=== PATIENT | male | born 1970 | race Caucasian/White ===

== ENCOUNTER 2020-02-18 09:55 | Inpatient (IN) ==
[2020-02-18 10:46] LABS: Basophils # 0.1 K/mcL (0.0-0.2); Basophils % 0.4 %; Eosinophils # 0.3 K/mcL (0.0-0.6); Eosinophils % 1.7 %; Hemoglobin 13.3 g/dL (12.9-16.9); Immature Granulocytes % 0.5 % (0-4); Lymphocytes # 1.3 K/mcL (0.6-4.6); Lymphocytes % 8.5 %; Mean Corpuscular HGB Conc 32.4 g/dL (31.6-35.5); Mean Corpuscular Hemoglobin 28.8 pg (28.0-33.3); Mean Corpuscular Volume 88.7 fL (83.0-100.0); Mean Platelet Volume 9.1 fL (9.4-12.4); Monocytes # 0.9 K/mcL (0.0-1.3); Monocytes % 5.8 %; Neutrophils # 12.7 K/mcL (1.6-8.9); Platelet Count 401 K/mcL (140-400); Red Blood Count 4.62 M/mcL (4.19-5.50); Red Cell Distribution Width 12.5 % (11.5-14.5); Segmented Neutrophils % 83.1 %; White Blood Count 15.3 K/mcL (4.3-11.1)
[2020-02-18 10:58] LABS: Acetaminophen < 10 mcg/mL (10-20); BUN/Creatinine Ratio 12 (6-26); Blood Urea Nitrogen 11 mg/dL (6-20); Calcium 9.8 mg/dL (8.6-10.3); Carbon Dioxide 25 mEq/L (23-29); Chloride 99 mEq/L (98-107); Chol/HDL Ratio 5.8 (0-4.9); Cholesterol 203 mg/dL (< 200); Ethanol < 10 mg/dL (Less than 10); Glucose 132 mg/dL (70-105); HDL Cholesterol 35 mg/dL (40-59); LDL Cholesterol,Calculated 132 mg/dL (< 100); Osmolality,Calculated 279 (280-300); Potassium 3.2 mEq/L (3.5-5.1); Salicylate < 2.5 mg/dL (15.0-30.0); Sodium 134 mEq/L (136-145); Triglycerides 178 mg/dL (< 150); eGFR For African Americans > 60 (> 60); eGFR For Non-African Americans > 60 (> 60)
[2020-02-18 11:19] LABS: Bilirubin,Urine Negative (Negative); Blood,Urine Negative (Negative); Clarity,Urine Clear (Clear); Color,Urine Light-Yellow (Yellow); Glucose,Urine (UA) Normal (Normal); Ketones,Urine Negative (Negative); Leukocyte Esterase,Urine Negative (Negative); Nitrite,Urine Negative (Negative); Protein,Urine Negative (Neg-Trace); Specific Gravity,Urine 1.011 (1.010-1.025); Urobilinogen,Urine Normal (Normal)
[2020-02-18 11:26] LABS: Amphetamine Screen,Urine Negative ng/mL (Cutoff=1000); Barbiturate Screen,Urine Negative ng/mL (Cutoff=200); Benzodiazepines Screen,Urine Negative ng/mL (Cutoff=200); Cannabinoid Screen,Urine Negative ng/mL (Cutoff = 50); Cocaine Screen,Urine Negative ng/mL (Cutoff= 300); Opiate Screen,Urine Negative ng/mL (Cutoff=300); Phencyclidine Screen,Urine Negative ng/mL (Cutoff=25)
[2020-02-18 11:41] LABS: Estimated Average Glucose 131 mg/dl
[2020-02-18] MEDS ORDERED: *HR* LORazepam 2 MG/ML VIAL IM PRN (12:19)
[2020-02-18] MEDS ORDERED: *HR* LORazepam 1 MG TABLET PO PRN (12:19)
[2020-02-18] MEDS ORDERED: haloperidoL 5 MG TABLET PO PRN (12:19)
[2020-02-18] MEDS ORDERED: MOM Conc 10 ML UD.LIQ PO PRN (12:19)
[2020-02-18] MEDS ORDERED: Mag Hydrox/Al Hydrox/Simeth 30 ML UDC PO PRN (12:19)
[2020-02-18] MEDS ORDERED: Haloperidol Lactate 5 MG/ML VIAL IM PRN (12:19)
[2020-02-18] MEDS: risperiDONE 0.25 MG TABLET PO SCH (12:59)
[2020-02-18] MEDS: Nicotine 14 MG PATCH.TD24 TD SCH (17:02)
[2020-02-18] MEDS: risperiDONE 1 MG TABLET PO SCH (20:33)
[2020-02-18] MEDS: hydrOXYzine pamoate 25 MG CAPSULE PO PRN (20:33)
[2020-02-18] MEDS: traZODone 50 MG TABLET PO PRN (20:33)
[2020-02-19] MEDS: risperiDONE 0.25 MG TABLET PO SCH (08:17)
[2020-02-19] MEDS: Nicotine 14 MG PATCH.TD24 TD SCH (08:18)
[2020-02-19] MEDS ORDERED: Potassium Chloride Elixir 20 MEQ/15 ML UDC PO ONE (11:15)
[2020-02-19] MEDS: Acetaminophen 325 MG TABLET PO PRN (21:01)
[2020-02-19] MEDS: risperiDONE 1 MG TABLET PO SCH (21:02)
[2020-02-19] MEDS: traZODone 50 MG TABLET PO PRN (21:02)
[2020-02-19] MEDS: hydrOXYzine pamoate 25 MG CAPSULE PO PRN (21:02)
[2020-02-20] MEDS: Nicotine 14 MG PATCH.TD24 TD SCH (08:44)
[2020-02-20] MEDS: risperiDONE 0.25 MG TABLET PO SCH (08:44)
[2020-02-20 11:02] LABS: Alanine Aminotransferase 14 Units/L (7-52); Albumin 4.3 g/dL (3.5-5.7); Albumin/Globulin Ratio 1.4 (1.1-2.2); Alkaline Phosphatase 80 Units/L (34-104); Aspartate Amino Transferase 20 Units/L (13-39); BUN/Creatinine Ratio 13 (6-26); Bilirubin,Total 0.2 mg/dL (0.3-1.0); Blood Urea Nitrogen 11 mg/dL (6-20); Calcium 9.5 mg/dL (8.6-10.3); Carbon Dioxide 29 mEq/L (23-29); Chloride 99 mEq/L (98-107); Globulin 3.1 g/dL (2.4-3.5); Glucose 88 mg/dL (70-105); Osmolality,Calculated 279 (280-300); Potassium 3.8 mEq/L (3.5-5.1); Sodium 135 mEq/L (136-145); Total Protein 7.4 g/dL (6.4-8.9); eGFR For African Americans > 60 (> 60); eGFR For Non-African Americans > 60 (> 60)
[2020-02-20] MEDS: traZODone 50 MG TABLET PO PRN (20:42)
[2020-02-20] MEDS: hydrOXYzine pamoate 25 MG CAPSULE PO PRN (20:42)
[2020-02-20] MEDS: Acetaminophen 325 MG TABLET PO PRN (20:42)
[2020-02-20] MEDS ORDERED: RisperiDAL 3 MG TABLET PO SCH (21:00)
[2020-02-21 09:05] VITALS: BP 126/83
[2020-02-21] MEDS: Nicotine 14 MG PATCH.TD24 TD SCH (09:06)
[2020-02-21] MEDS: risperiDONE 0.25 MG TABLET PO SCH (09:06)
== END 2020-02-21 12:40 | disposition home or self-care (01) | DRG 751 ==
LOC: EMEROOARM 09:55 → 1ANU 12:18
PROVIDERS: ADMIT Psychiatry & Neurology Psychiatry; ATTEND Psychiatry & Neurology Psychiatry

== ENCOUNTER 2020-03-21 15:58 | Inpatient (IN) ==
[2020-03-21 16:42] LABS: Bilirubin,Urine Negative (Negative); Blood,Urine Negative (Negative); Clarity,Urine Clear (Clear); Color,Urine Light-Yellow (Yellow); Glucose,Urine (UA) Normal (Normal); Ketones,Urine Negative (Negative); Leukocyte Esterase,Urine Negative (Negative); Nitrite,Urine Negative (Negative); Protein,Urine Trace mg/dL (Neg-Trace); Specific Gravity,Urine 1.021 (1.010-1.025); Urobilinogen,Urine Normal (Normal)
[2020-03-21 16:51] LABS: Basophils % 0.4 %; Eosinophils % 0.4 %; Hematocrit 39.9 % (37.5-50.1); Hemoglobin 13.2 g/dL (12.9-16.9); Immature Granulocytes % 0.3 % (0-4); Lymphocytes # 1.3 K/mcL (0.6-4.6); Lymphocytes % 12.8 %; Mean Corpuscular HGB Conc 33.1 g/dL (31.6-35.5); Mean Corpuscular Hemoglobin 28.8 pg (28.0-33.3); Mean Corpuscular Volume 86.9 fL (83.0-100.0); Mean Platelet Volume 10.4 fL (9.4-12.4); Monocytes # 0.9 K/mcL (0.0-1.3); Monocytes % 8.8 %; Platelet Count 290 K/mcL (140-400); Red Blood Count 4.59 M/mcL (4.19-5.50); Red Cell Distribution Width 12.3 % (11.5-14.5); Segmented Neutrophils % 77.3 %; White Blood Count 10.4 K/mcL (4.3-11.1)
[2020-03-21 16:55] LABS: Amphetamine Screen,Urine Negative ng/mL (Cutoff=1000); Barbiturate Screen,Urine Negative ng/mL (Cutoff=200); Benzodiazepines Screen,Urine Negative ng/mL (Cutoff=200); Cannabinoid Screen,Urine Negative ng/mL (Cutoff = 50); Cocaine Screen,Urine Negative ng/mL (Cutoff= 300); Opiate Screen,Urine Negative ng/mL (Cutoff=300); Phencyclidine Screen,Urine Negative ng/mL (Cutoff=25)
[2020-03-21 16:56] LABS: Estimated Average Glucose 117 mg/dl
[2020-03-21 17:11] LABS: Acetaminophen < 10 mcg/mL (10-20); BUN/Creatinine Ratio 10 (6-26); Blood Urea Nitrogen 8 mg/dL (6-20); Carbon Dioxide 22 mEq/L (23-29); Chloride 102 mEq/L (98-107); Chol/HDL Ratio 5.9 (0-4.9); Cholesterol 189 mg/dL (< 200); Ethanol < 10 mg/dL (Less than 10); Glucose 153 mg/dL (70-105); HDL Cholesterol 32 mg/dL (40-59); LDL Cholesterol,Calculated 125 mg/dL (< 100); Osmolality,Calculated 281 (280-300); Potassium 3.1 mEq/L (3.5-5.1); Salicylate < 2.5 mg/dL (15.0-30.0); Sodium 135 mEq/L (136-145); Triglycerides 158 mg/dL (< 150); eGFR For African Americans > 60 (> 60); eGFR For Non-African Americans > 60 (> 60)
[2020-03-21] MEDS ORDERED: haloperidoL 5 MG TABLET PO PRN (18:39)
[2020-03-21] MEDS ORDERED: *HR* LORazepam 1 MG TABLET PO PRN (18:39)
[2020-03-21] MEDS ORDERED: *HR* LORazepam 2 MG/ML VIAL IM PRN (18:39)
[2020-03-21] MEDS ORDERED: Haloperidol Lactate 5 MG/ML VIAL IM PRN (18:39)
[2020-03-21] MEDS ORDERED: MOM Conc 10 ML UD.LIQ PO PRN (18:39)
[2020-03-21] MEDS: Ibuprofen 400 MG TABLET PO PRN (21:06)
[2020-03-21] MEDS: Nicotine 2 MG GUM BC PRN (21:07)
[2020-03-21] MEDS: hydrOXYzine pamoate 25 MG CAPSULE PO PRN (23:43)
[2020-03-22] MEDS ORDERED: Mag Hydrox/Al Hydrox/Simeth 30 ML UDC PO PRN (04:09)
[2020-03-22] MEDS: Nicotine 2 MG GUM BC PRN ×4 (06:17→20:29)
[2020-03-22] MEDS: hydrOXYzine pamoate 25 MG CAPSULE PO PRN (20:29)
[2020-03-23] MEDS: Nicotine 2 MG GUM BC PRN ×3 (08:27→20:07)
[2020-03-23] MEDS: Ibuprofen 400 MG TABLET PO PRN (14:15)
[2020-03-23] MEDS: hydrOXYzine pamoate 25 MG CAPSULE PO PRN (20:07)
[2020-03-24] MEDS: Nicotine 2 MG GUM BC PRN ×2 (08:41→13:59)
[2020-03-24 11:01] VITALS: BP 130/85
[2020-03-24] MEDS ORDERED: INVEGA SUSTENNA 234 MG IM ONE (14:00)
== END 2020-03-24 16:30 | disposition home or self-care (01) | DRG 750 ==
LOC: EMEROOARM 15:58 → INTOOBSV 18:13 → 1ANU 18:13 → SUATTDRO 03-22 13:42
PROVIDERS: ADMIT Psychiatry & Neurology Psychiatry; ATTEND Psychiatry & Neurology Psychiatry